=== PATIENT | female | born 2000 | race Hispanic/Latino ===

== ENCOUNTER 2020-07-01 15:39 | Outpatient (CLI) | payer BC | END 2020-07-01 15:40 | disposition home or self-care (01) | LOC: BICULT 15:39 | PROVIDERS: ATTEND Specialist | DX: N63.25 Unspecified lump in the left breast, overlapping quadrants (principal); N63.10 Unspecified lump in the right breast, unspecified quadrant ==

== ENCOUNTER → 2020-07-14 | Day surgery (SDC) | payer BC, MEDICAID | LOC: BICULT 12:33 | PROVIDERS: ATTEND Specialist | PROC: 0H9U3ZX Drainage of Left Breast, Percutaneous Approach, Diagnostic (ICD-10-PCS; principal; 2020-07-14) | DX: D24.2 Benign neoplasm of left breast (principal) | CPT/HCPCS: 19083; 88305 ==